=== PATIENT | male | born 1975 | race Hispanic/Latino ===

== ENCOUNTER 2022-06-27 21:47 | Inpatient (IN) | payer OTHER ==
[~2022-06-27] VITALS: Ht 162.6 cm; Wt 91.7 kg
[2022-06-27 23:57] LABS: BASOPHILS % (AUTO) 0.5 % (0.0-5.0); HEMATOCRIT 41.8 % (42-54); LYMPHOCYTES % (AUTO) 18.5 % (21.0-51.0); MEAN CORPUSCULAR HEMOGLOBIN 28.2 pg (27.0-33.0); MEAN CORPUSCULAR VOLUME 85.3 fL (79-99); NEUTROPHILS % (AUTO) 72.8 % (40.0-77.0); PLATELET COUNT (AUTO) 171 K/uL (130-400); RED CELL DISTRIBUTION WIDTH 12.8 % (11.0-15.5); WHITE BLOOD COUNT (AUTO) 9.5 K/uL (4.8-10.8)
[2022-06-28 00:11] LABS: APPEARANCE,URINE CLEAR (CLEAR); BILIRUBIN,URINE NEGATIVE (NEGATIVE); COLOR,URINE LIGHT-YELLOW (YELLOW); GLUCOSE, URINE (UA) >=1000 mg/dL (NEGATIVE); KETONES,URINE 20 mg/dL (NEGATIVE); LEUKOCYTE ESTERASE ,URINE 500 Leu/uL (NEGATIVE); NITRATE,URINE NEGATIVE (NEGATIVE); OCCULT BLOOD,URINE MODERATE (NEGATIVE); PROTEIN,URINE 20 mg/dL (NEGATIVE)
[2022-06-28 00:22] LABS: CREATININE 0.9 mg/dL (0.5-1.5); INR 0.94 (0.85-1.15); POTASSIUM 4.3 mmol/L (3.5-5.1); PROTHROMBIN TIME 10.3 SEC (9.6-11.6)
[2022-06-28 00:24] LABS: PARTIAL THROMBOPLASTIN TIME 27.4 SEC (26.3-35.5)
[2022-06-28 00:24] LABS: MUCUS,URINE RARE LPF (None Seen); SQUAMOUS EPITHELIAL CELL,UR MOD /HPF (0-2)
[2022-06-28 00:27] LABS: ALBUMIN 3.6 g/dL (3.5-5.0); TOTAL PROTEIN, SERUM 6.9 g/dL (6.0-8.3)
[2022-06-28] MEDS ORDERED: CEFTRIAXONE 1G VIAL IVP ONE (00:30)
[2022-06-28] MEDS ORDERED: ACETAMINOPHEN WITH CODEINE 1 TAB TAB PO ONE (00:30)
[2022-06-28] MEDS ORDERED: 0.9%NACL 1000ML 1,000 ML IV ONE (00:30)
[2022-06-28] MEDS ORDERED: INSULIN HUMULIN R 100 UNIT/ML 3ML IV ONE (00:30)
[2022-06-28 01:11] LABS: ERYTHROCYTE SEDIMENTATION RATE 5 MM/HR (0-15)
[2022-06-28] MEDS ORDERED: MAG/ALUM/SIMETH 30 ML UDCUP PO PRN (02:30)
[2022-06-28] MEDS ORDERED: ACETAMINOPHEN 325 MG TAB PO PRN ×2 (02:30)
[2022-06-28] MEDS ORDERED: VANCOMYCIN 1G/250ML KIT 250 ML IV SCH (02:30)
[2022-06-28] MEDS ORDERED: 0.9% NACL 500ML IV.SOLN 500 ML IV ONE (02:30)
[2022-06-28] MEDS ORDERED: DIPHENHYDRAMINE HCL 25 MG CAPSULE PO PRN (02:30)
[2022-06-28] MEDS ORDERED: ZOLPIDEM TARTRATE 5 MG TAB PO PRN (02:30)
[2022-06-28] MEDS ORDERED: LACTULOSE 20 GM/30 ML UDCUP PO PRN (02:30)
[2022-06-28] MEDS ORDERED: ONDANSETRON 4MG INJ IV PRN (02:30)
[2022-06-28] MEDS ORDERED: VANCOMYCIN PROTOCOL PER PHARMACY IV SCH (03:00)
[2022-06-28] MEDS: 0.9%NACL 1000ML 1,000 ML IV SCH ×3 (03:03→22:30)
[2022-06-28 03:32] LABS: HEMOGLOBIN A1C 11.8 % (4.0-6.0)
[2022-06-28] MEDS: MORPHINE 4 MG SYG IV PRN ×3 (05:08→23:21)
[2022-06-28] MEDS: ZOSYN 3.375GM+NS 50ML 50 ML IVPB SCH ×3 (05:08→21:00)
[2022-06-28] MEDS ORDERED: GLIP5TAB11 PO (05:23)
[2022-06-28] MEDS ORDERED: METF-446 PO (05:23)
[2022-06-28 05:40] VITALS: BP 141/88
[2022-06-28] MEDS: INSULIN HUMULIN R 100 UNIT/ML 3ML SQ SCH ×4 (06:33→20:04)
[2022-06-28] MEDS ORDERED: COMPOUND IV REFRIGERATED 1 EACH IVSOLN MISC PRN (07:00)
[2022-06-28 08:00] VITALS: BP 151/94
[2022-06-28] MEDS: ACETAMINOPHEN WITH CODEINE 1 TAB TAB PO PRN ×2 (08:16→16:24)
[2022-06-28] MEDS: FAMOTIDINE 20MG TAB PO SCH ×2 (08:42→20:03)
[2022-06-28] MEDS: VANCOMYCIN 1.25 GM/250 ML BAG 250 ML IV SCH ×2 (08:42→20:02)
[2022-06-28] MEDS: ENOXAPARIN SODIUM 40 MG/0.4 ML SYRINGE SQ SCH (08:43)
[2022-06-28 12:00] VITALS: BP 131/86
[2022-06-28 16:00] VITALS: BP 172/91
[2022-06-28 20:14] VITALS: BP 173/78
[2022-06-29] VITALS (7 sets, daily range): BP systolic 119–158; BP diastolic 62–99
[2022-06-29] MEDS: ACETAMINOPHEN WITH CODEINE 1 TAB TAB PO PRN (03:50)
[2022-06-29] MEDS: ZOSYN 3.375GM+NS 50ML 50 ML IVPB SCH ×3 (05:13→21:48)
[2022-06-29 05:34] LABS: MEAN CORPUSCULAR HEMOGLOBIN 27.9 pg (27.0-33.0); MEAN CORPUSCULAR HGB CONC 32.4 g/dL (32.0-36.0); RED BLOOD CELL COUNT(AUTO) 4.3 MIL/uL (4.50-6.20); RED CELL DISTRIBUTION WIDTH 12.8 % (11.0-15.5); WHITE BLOOD COUNT (AUTO) 7.7 K/uL (4.8-10.8)
[2022-06-29 05:57] LABS: ALBUMIN 2.7 g/dL (3.5-5.0); CREATININE 0.6 mg/dL (0.5-1.5); MAGNESIUM 1.6 mg/dL (1.80-2.40); POTASSIUM 3.9 mmol/L (3.5-5.1); TOTAL PROTEIN, SERUM 5.6 g/dL (6.0-8.3)
[2022-06-29] MEDS: INSULIN HUMULIN R 100 UNIT/ML 3ML SQ SCH ×4 (06:03→20:43)
[2022-06-29] MEDS: 0.9%NACL 1000ML 1,000 ML IV SCH ×2 (08:30→18:30)
[2022-06-29] MEDS: FAMOTIDINE 20MG TAB PO SCH ×2 (08:38→20:43)
[2022-06-29] MEDS: VANCOMYCIN 1.25 GM/250 ML BAG 250 ML IV SCH ×2 (08:39→21:42)
[2022-06-29] MEDS: ENOXAPARIN SODIUM 40 MG/0.4 ML SYRINGE SQ SCH (08:42)
[2022-06-29] MEDS ORDERED: MAGNESIUM 2GM PREMIX 50ML 50 ML IV PRN (09:30)
[2022-06-29] MEDS ORDERED: GADOTERATE MEGLUMINE 10 MMOL/20 ML VIAL IV ONE (16:26)
[2022-06-29] MEDS ORDERED: MAGNESIUM 2GM PREMIX 50ML 50 ML IV SCH (17:00)
[2022-06-29] MEDS ORDERED: HYDRALAZINE 20MG/ML VIAL IV PRN (17:00)
[2022-06-30] VITALS (24 sets, daily range): BP systolic 120–169; BP diastolic 65–103
[2022-06-30] MEDS: ZOSYN 3.375GM+NS 50ML 50 ML IVPB SCH ×3 (04:46→20:13)
[2022-06-30] MEDS: 0.9%NACL 1000ML 1,000 ML IV SCH ×2 (04:46→14:30)
[2022-06-30 05:49] LABS: BASOPHILS % (AUTO) 0.8 % (0.0-5.0); HEMATOCRIT 42.2 % (42-54); LYMPHOCYTES % (AUTO) 22.2 % (21.0-51.0); MEAN CORPUSCULAR HEMOGLOBIN 28.2 pg (27.0-33.0); MEAN CORPUSCULAR HGB CONC 33.4 g/dL (32.0-36.0); MEAN CORPUSCULAR VOLUME 84.4 fL (79-99); MONOCYTES % (AUTO) 6.4 % (3.0-13.0); NEUTROPHILS % (AUTO) 69.3 % (40.0-77.0); PLATELET COUNT (AUTO) 184 K/uL (130-400); RED CELL DISTRIBUTION WIDTH 12.8 % (11.0-15.5); WHITE BLOOD COUNT (AUTO) 7.1 K/uL (4.8-10.8)
[2022-06-30 06:09] LABS: ALBUMIN 3.2 g/dL (3.5-5.0); CREATININE 0.8 mg/dL (0.5-1.5); MAGNESIUM 1.9 mg/dL (1.80-2.40); POTASSIUM 4.3 mmol/L (3.5-5.1); TOTAL PROTEIN, SERUM 6.9 g/dL (6.0-8.3)
[2022-06-30] MEDS: INSULIN HUMULIN R 100 UNIT/ML 3ML SQ SCH ×4 (06:21→20:15)
[2022-06-30] MEDS: VANCOMYCIN 1.25 GM/250 ML BAG 250 ML IV SCH ×2 (08:20→20:13)
[2022-06-30] MEDS ORDERED: LOSARTAN 25 MG TABLET PO SCH (09:00)
[2022-06-30] MEDS: ENOXAPARIN SODIUM 40 MG/0.4 ML SYRINGE SQ SCH (09:00)
[2022-06-30] MEDS: FAMOTIDINE 20MG TAB PO SCH ×2 (09:00→20:13)
[2022-06-30] MEDS ORDERED: BUPIVACAINE/PF 0.5% 30ML VIAL INJ ONE (09:30)
[2022-06-30] MEDS ORDERED: LIDOCAINE PF 100MG/5ML (2%) SYRINGE 5ML ONE (09:38)
[2022-06-30] MEDS ORDERED: PROPOFOL 10 MG/ML 20ML VIAL IV ONE (09:38)
[2022-06-30] MEDS ORDERED: FENTANYL CITRATE PF 50 MCG/1 ML 2ML VIAL ONE (09:39)
[2022-06-30] MEDS ORDERED: MIDAZOLAM HCL 1 MG/ML 2ML VIAL ONE (09:39)
[2022-06-30] MEDS ORDERED: KETOROLAC 30MG VIAL (30MG/ML) ONE ×2 (10:01→10:23)
[2022-06-30] MEDS ORDERED: ONDANSETRON 4MG INJ ONE (10:01)
[2022-06-30] MEDS ORDERED: LIDOCAINE HCL 1% 20 ML VIAL ONE (10:04)
[2022-06-30] MEDS: ACETAMINOPHEN WITH CODEINE 1 TAB TAB PO PRN ×2 (11:35→18:20)
[2022-06-30] MEDS: LOSARTAN 25 MG TABLET PO SCH (20:13)
[2022-07-01] VITALS (7 sets, daily range): BP systolic 113–155; BP diastolic 80–97
[2022-07-01] MEDS: 0.9%NACL 1000ML 1,000 ML IV SCH ×3 (01:13→20:41)
[2022-07-01] MEDS: ZOSYN 3.375GM+NS 50ML 50 ML IVPB SCH ×3 (04:53→21:50)
[2022-07-01] MEDS: ACETAMINOPHEN WITH CODEINE 1 TAB TAB PO PRN (05:11)
[2022-07-01 05:48] LABS: HEMATOCRIT 40.6 % (42-54); MEAN CORPUSCULAR HEMOGLOBIN 27.7 pg (27.0-33.0); MEAN CORPUSCULAR VOLUME 83.9 fL (79-99); RED BLOOD CELL COUNT(AUTO) 4.84 MIL/uL (4.50-6.20); RED CELL DISTRIBUTION WIDTH 12.9 % (11.0-15.5); WHITE BLOOD COUNT (AUTO) 5.9 K/uL (4.8-10.8)
[2022-07-01 05:55] LABS: ALBUMIN 2.9 g/dL (3.5-5.0); CREATININE 0.7 mg/dL (0.5-1.5); MAGNESIUM 1.7 mg/dL (1.80-2.40); POTASSIUM 4.3 mmol/L (3.5-5.1); TOTAL PROTEIN, SERUM 6.4 g/dL (6.0-8.3)
[2022-07-01] MEDS: INSULIN HUMULIN R 100 UNIT/ML 3ML SQ SCH ×4 (07:00→20:45)
[2022-07-01] MEDS: LOSARTAN 25 MG TABLET PO SCH ×2 (08:30→20:41)
[2022-07-01] MEDS: FAMOTIDINE 20MG TAB PO SCH ×2 (08:30→20:41)
[2022-07-01] MEDS: VANCOMYCIN 1.25 GM/250 ML BAG 250 ML IV SCH (08:31)
[2022-07-01] MEDS: ENOXAPARIN SODIUM 40 MG/0.4 ML SYRINGE SQ SCH (08:31)
[2022-07-01] MEDS: MORPHINE 4 MG SYG IV PRN (14:15)
[2022-07-01] MEDS: VANCOMYCIN 1.5 GM/250 ML BAG 250 ML IV SCH (19:22)
[2022-07-02 03:33] VITALS: BP 142/82
[2022-07-02] MEDS: ZOSYN 3.375GM+NS 50ML 50 ML IVPB SCH (05:27)
[2022-07-02] MEDS: INSULIN HUMULIN R 100 UNIT/ML 3ML SQ SCH (06:14)
[2022-07-02] MEDS: 0.9%NACL 1000ML 1,000 ML IV SCH (06:30)
[2022-07-02 08:00] VITALS: BP 140/81
[2022-07-02] MEDS: VANCOMYCIN 1.5 GM/250 ML BAG 250 ML IV SCH (08:38)
[2022-07-02] MEDS: ENOXAPARIN SODIUM 40 MG/0.4 ML SYRINGE SQ SCH (08:39)
[2022-07-02] MEDS: LOSARTAN 25 MG TABLET PO SCH (08:39)
[2022-07-02] MEDS: FAMOTIDINE 20MG TAB PO SCH (08:39)
[2022-07-02] MEDS ORDERED: LEVO-70 PO (09:48)
[2022-07-02] MEDS ORDERED: DOXY100T2 PO (09:48)
[2022-07-02 11:47] VITALS: BP 134/78
== END 2022-07-02 10:30 | disposition home or self-care (01) | DRG 603 ==
LOC: EDH 21:47 → EDHIP 21:48 → OBSVTOIN 21:48 → 4DH 06-28 05:40
PROVIDERS: ADMIT Internal Medicine; ATTEND Internal Medicine
PROC: 0X9K0ZZ Drainage of Left Hand, Open Approach (ICD-10-PCS; principal; 2022-06-30 09:57)
DX: L03.114 Cellulitis of left upper limb (principal); L02.512 Cutaneous abscess of left hand; N39.0 Urinary tract infection, site not specified; E11.65 Type 2 diabetes mellitus with hyperglycemia; Z20.822 Contact with and (suspected) exposure to COVID-19; E83.42 Hypomagnesemia; B96.20 Unspecified Escherichia coli [E. coli] as the cause of diseases classified elsewhere; S61.432A Puncture wound without foreign body of left hand, initial encounter; E66.09 Other obesity due to excess calories; X58.XXXA Exposure to other specified factors, initial encounter; Z79.4 Long term (current) use of insulin; Z68.34 Body mass index [BMI] 34.0-34.9, adult; Z83.3 Family history of diabetes mellitus; Y93.89 Activity, other specified; Y92.89 Other specified places as the place of occurrence of the external cause; Y99.8 Other external cause status
CPT/HCPCS: 36415; 73130; 73220; 76882; 80053; 80202; 81001; 82550; 82948; 83036; 83605; 83735; 85025; 85027; 85610; 85651; 85730; 87040; 87070; 87076; 87077; 87088; 87186; 87205; 87635; G0378; J0696; J1650; J1815; J1885; J2001; J2250; J2270; J2405; J2543; J2704; J3010; J3370; J3475; J3490; J7030; J7040

== ENCOUNTER 2023-06-05 19:20 | Emergency (ER) | payer OTHER ==
[~2023-06-05] VITALS: Ht 165.1 cm; Wt 92.1 kg
[~2023-06-05 19:20] MED LIST: ASPI-1197 PO; ATOR40TA69 PO; CLOP-31 PO; GLIP10TA9 PO; LISI20TA24 PO; METF-446 PO
[2023-06-05 21:25] VITALS: BP 132/88; PULSE 74; RESP 20; O2SAT 98
[2023-06-06] MEDS ORDERED: 0.9%NACL 1000ML 1,000 ML IV ONE (06:04)
== END 2023-06-05 21:29 | disposition home or self-care (01) ==
LOC: EDH 19:20
DX: G44.209 Tension-type headache, unspecified, not intractable (principal); E11.9 Type 2 diabetes mellitus without complications; Z79.82 Long term (current) use of aspirin; Z79.84 Long term (current) use of oral hypoglycemic drugs; Z79.899 Other long term (current) drug therapy; Z98.890 Other specified postprocedural states
CPT/HCPCS: 99282; J7030